=== PATIENT | female | born 1985 | race African-American/Black ===

== ENCOUNTER → 2019-08-30 | Emergency (ER) | payer SELFPAY ==
[~2019-08-30] VITALS: Ht 167.6 cm; Wt 107.0 kg
[~2019-08-30] MED LIST: FERROUS SU220 MG/5 M PO; LORAZEPAM INJ 2 MG/ML VIAL IM STA; TYLENOL COLD M240 M1
--- OUTSIDE RECORDS SUMMARY | 2019-08-30 17:50 | XMS REPORT ---
Author Author [facility] Address Unknown Phone Unavailable Care Team Providers Care Nanotechnician Name Role Phone SHRAVAN HEARD Unavailable Unavailable Payers Payer Name Policy Type Policy Number Effective Date Expiration Date Problems This patient has no known problems. Allergies, Adverse Reactions, Alerts Allergy Name Allergy Type Status Severity Reaction(s) Onset Date Inactive Date Treating Clinician Comments aspirin DA Active U 2019-03-12 00:00:00 aspirin DA Active U 2018-07-13 00:00:00 No Known Contrast Allergies DA Active U 2008-01-01 00:00:00 No Known Drug Allergies DA Active U 2008-01-01 00:00:00 No Known Food Allergies DA Active U 2008-01-01 00:00:00 No Known Other Allergies DA Active U 2008-01-01 00:00:00 No Known Drug Intolerances DA Active U 2003-12-25 00:00:00 Medications This patient has no known medications. Results Test Description Test Time Test Comments Text Results Atomic Results Result Comments MRI SPINE LUMBAR WO [place] [address] Patient Name: FRANCISCO SWEET MR #: [id number] : 1985 Age/Sex: 32/F Req #: [id number] Adm Physician: Ordered by: SHRAVAN HEARD MD Report #: [id number] Location: MRI Room/Bed: Procedure: [id number] MRI/MRI SPINE LUMBAR WO Exam Date: Exam Time: REPORT STATUS: Signed Examination: MRI SPINE LUMBAR WITHOUT CONTRAST History: Chronic low back pain radiating down the left leg and foot with associated numbness and weakness. Comparison studies: None Technique: Sagittal, coronal and axial T2 , sagittal T1 and STIR; axial spin density oblique. Findings: Number of lumbar vertebral bodies: Five. Alignment: Normal lordosis. No scoliosis. Soft tissues: Partially visualized 11 mm interpolar left renal T2 hyperintense lesion. Posterior paraspinal soft tissues and muscles: No abnormality. Lower thoracic cord: Normal in signal and morphology. The tip of the conus is at L1-L2. Cauda equina: No masses. No arachnoiditis. Vertebrae: No fractures, infection or neoplasm. Degenerative changes: L1-L2 through L5-S1: No abnormalities. IMPRESSION: 1. No d egenerative disc or foraminal or canal stenosis. 2. Partially visualized 11mm interpolar left renal T2 hyperintense lesion. Further evaluation with an ultrasound is recommended. Signed by: Dr. Milena Vincent M.D. on 05/14/2017 11:26 AM Dictated By: MILENA BERNSTEIN MD [id number] Transcribed By: RYAN on 05/14/17 1126 COPY TO: SHRAVAN HEARD MD
--- NOTE | 2019-08-30 18:38 | NUR ---
PATIENT CALLED TO GO TO ROOM BUT IS NOT IN THE LOBBY OR RESTROOM. SPOUSE STATES THAT THE PATIENT IS OUTSIDE AND HE WILL TRY TO GET HER BACK INSIDE
[2019-08-30 19:31] VITALS: BP 153/99
== END | disposition home or self-care (01) ==
LOC: ER 17:48
DX: F41.1 Generalized anxiety disorder (principal)
CPT/HCPCS: 99283; J2060

== ENCOUNTER 2024-05-23 15:50 | Emergency (ER) | payer OTHER ==
[~2024-05-23] VITALS: Ht 167.6 cm; Wt 127.0 kg
[~2024-05-23 15:50] MED LIST changes: -LORAZEPAM INJ 2 MG/ML VIAL IM STA
[2024-05-23 16:15] VITALS: TEMP 98.1
[2024-05-23 17:18] LABS: BASOPHILS # (AUTO) 0.1 (0.0-0.1); BASOPHILS % 0.8 % (0.0-1.0); EOSINOPHILS # (AUTO) 0.1 (0.0-0.4); EOSINOPHILS % 1.8 % (0.0-6.0); HEMATOCRIT 34.7 % (34.2-44.1); HEMOGLOBIN 10.2 g/dL (12.0-16.0); LYMPHOCYTES # (AUTO) 2.2 (1.0-3.2); LYMPHOCYTES % 32.9 % (18.0-39.1); MEAN CORPUSCULAR HEMOGLOBIN 22.1 pg (28-32); MEAN CORPUSCULAR HGB CONC 29.4 g/dL (31-35); MEAN CORPUSCULAR VOLUME 75.1 fL (81-99); MONOCYTES # (AUTO) 0.4 (0.2-0.8); MONOCYTES % 6.7 % (4.4-11.3); NEUTROPHILS # (AUTO) 3.8 (2.1-6.9); NEUTROPHILS % 57.6 % (38.7-80.0); PLATELET COUNT 300 x10e3/uL (140-360); RED BLOOD COUNT 4.62 x10e6/uL (3.6-5.1); RED CELL DISTRIBUTION WIDTH 16.1 % (11.7-14.4); WHITE BLOOD COUNT 6.54 x10e3/uL (4.8-10.8)
[2024-05-23 17:54] LABS: ALBUMIN 3.3 g/dL (3.5-5.0); ALBUMIN/GLOBULIN RATIO 0.7 (0.8-2.0); ANION GAP 10.8 mmol/L (8-16); BILIRUBIN,TOTAL 0.3 mg/dL (0.2-1.2); CALCIUM 8.8 mg/dL (8.4-10.2); CREATININE, SERUM 0.77 mg/dL (0.57-1.11); POTASSIUM 3.8 mmol/L (3.5-5.1); TOTAL PROTEIN 7.8 g/dL (6.5-8.1)
[2024-05-23] MEDS ORDERED: IOPAMIDOL 370 MG/ML 100 ML INFUS..BTL INJ ONE (18:05)
[2024-05-23] MEDS: Morphine 4mg INJECTION 4 MG/ML INJ IV STA (18:44)
[2024-05-23] MEDS: ONDANSETRON HCL INJ 2MG/ML 2ML 2 MG/ML VIAL IV STA (18:45)
[2024-05-23 18:58] VITALS: RESP 15
[2024-05-23 19:01] LABS: CLARITY,URINE CLEAR (CLEAR); COLOR,URINE YELLOW (YELLOW); LEUKOCYTE ESTERASE ,URINE NEGATIVE (NEGATIVE); NITRITE,URINE NEGATIVE (NEGATIVE); PH,URINE 6.5 (5 - 7)
[2024-05-23 19:02] LABS: BILIRUBIN,URINE NEGATIVE (NEGATIVE); GLUCOSE, URINE NEGATIVE (NEGATIVE); KETONES,URINE NEGATIVE (NEGATIVE); PROTEIN,URINE DIPSTICK NEGATIVE (NEGATIVE); URINE UROBILINOGEN 0.2 mg/dL (0.2 - 1)
[2024-05-23 19:09] LABS: BACTERIA,URINE RARE /HPF; EPITHELIAL CELLS,URINE RARE /LPF; WBC,URINE (MAN) 0-5 /HPF (0-5)
[2024-05-23 19:10] LABS: MUCUS,URINE MODERATE (RARE)
[2024-05-23 19:24] VITALS: PULSE 67
[2024-05-23] MEDS ORDERED: ULTRAM 50MG50 MG PO (20:06)
[2024-05-23] MEDS ORDERED: AMOX TR-K CLV1 EAC2 PO (20:06)
[2024-05-23 20:12] VITALS: BP 149/95; O2SAT 100
== END 2024-05-23 20:14 | disposition home or self-care (01) ==
LOC: ER 18:08
DX: R10.31 Right lower quadrant pain (principal); N83.201 Unspecified ovarian cyst, right side; I10 Essential (primary) hypertension; D64.9 Anemia, unspecified; F41.9 Anxiety disorder, unspecified; M54.9 Dorsalgia, unspecified; G89.29 Other chronic pain; F90.9 Attention-deficit hyperactivity disorder, unspecified type
CPT/HCPCS: 36415; 74177; 80053; 81001; 85025; 99284; J2270; J2405; Q9967